=== PATIENT | female | born 1980 | race Two or more races ===

== ENCOUNTER 2020-01-16 11:06 | Emergency (ER) | payer OTHER | END 2020-01-16 11:42 | disposition home or self-care (01) | LOC: JER 11:06 | CPT/HCPCS: 99282-25 ==

== ENCOUNTER 2021-08-23 04:29 | Day surgery (SDC) | payer OTHER ==
[2021-08-19 13:05] VITALS: BMI 24.1
[2021-08-23] MEDS ORDERED: oxyCODONE HCL 5 MG TABLET PO PRN (16:13)
[2021-08-23] MEDS ORDERED: ONDANSETRON 4 MG/2 ML VIAL IVPUSH PRN (16:13)
[2021-08-23] MEDS ORDERED: PROMETHAZINE HCL 25 MG/1 ML VIAL IVPUSH PRN (16:13)
[2021-08-23] MEDS ORDERED: LACTATED RINGERS SOLUTION 1,000 ML IV SCH (16:15)
[2021-08-23] MEDS ORDERED: LIDOCAINE HCL 1%, 10 MG/ML (20ML VIAL) ONE (16:20)
[2021-08-23] MEDS ORDERED: PROPOFOL 20 ML ONE (16:21)
[2021-08-23] MEDS ORDERED: MIDAZOLAM HCL 2 MG/2 ML SINGLE DOSE VIAL ONE (16:21)
[2021-08-23] MEDS ORDERED: GLYCOPYRROLATE 0.2 MG/1 ML VIAL ONE (16:21)
[2021-08-23] MEDS ORDERED: LIDOCAINE HCL/PF 2% SDV 5ML VIAL ONE (16:30)
[2021-08-23] MEDS ORDERED: KETOROLAC TROMETHAMINE 30 MG/1 ML VIAL ONE (16:36)
[2021-08-23] MEDS ORDERED: LIDOCAINE HCL 1%, 10 MG/ML (20ML VIAL) INF ONE ×2 (16:41)
[2021-08-23 18:20] VITALS: BP 131/82; PULSE 72; TEMP 97.2
== END 2021-08-23 18:26 | disposition home or self-care (01) ==
LOC: JASU-SURG 04:29
PROVIDERS: ATTEND Surgery
PROC: 0HBT0ZX Excision of Right Breast, Open Approach, Diagnostic (ICD-10-PCS; principal; 2021-08-23 13:00)
DX: D24.1 Benign neoplasm of right breast (principal)
CPT/HCPCS: 81025